=== PATIENT | female | born 1960 | race Caucasian/White ===

== ENCOUNTER 2016-06-27 10:52 | Inpatient (IN) | payer OTHER ==
[~2016-06-27] VITALS: Ht 162.6 cm; Wt 83.5 kg
[2016-06-27 11:55] LABS: HEMOGLOBIN 11.4 gm/dl (12.3-15.3); RED BLOOD COUNT 4.05 M/UL (4.00-5.10); WHITE BLOOD COUNT 8.1 K/UL (4.5-11.0)
[2016-06-27 12:18] LABS: BUN/CREATININE RATIO 10 (0-10)
[2016-06-28] MEDS ORDERED: ZOFRAN4 MG PO (00:13)
[2016-06-28] MEDS ORDERED: ZOCOR40 MG PO (00:14)
[2016-06-28] MEDS ORDERED: ZOLOFT100 MG PO (00:14)
[2016-06-28] MEDS ORDERED: GLUCOPHAGE 500500 MG PO (00:14)
[2016-06-28] MEDS ORDERED: FENOFIBRATE160 MG PO (00:15)
[2016-06-28] MEDS ORDERED: LANTUS100 UNIT/1 SQ (00:15)
[2016-06-28] MEDS ORDERED: NEURONTIN 400400 MG PO (00:15)
[2016-06-28] MEDS ORDERED: ALTACE10 MG PO (00:15)
[2016-06-28 04:37] LABS: RED BLOOD COUNT 3.97 M/UL (4.00-5.10)
[2016-06-28 05:04] LABS: BUN/CREATININE RATIO 23 (0-10)
[2016-06-30] MEDS ORDERED: LEVAQUIN750 MG PO (17:20)
[2016-06-30] MEDS ORDERED: MEDROL DOSEPAK 24 MG PO (17:21)
[2016-06-30] MEDS ORDERED: NICOTINE PATCH1 EAC1 TD (17:22)
[2016-06-30] MEDS ORDERED: FLONASE 0.05% N16 GM (17:24)
[2016-06-30] MEDS ORDERED: DIFLUCAN200 MG PO (17:24)
== END 2016-06-30 18:55 | disposition home or self-care (01) | DRG 189 ==
LOC: ER1 10:52 → ZEROF 21:24 → MED SURG 4 21:24
PROVIDERS: Emergency Medicine; ADMIT Hospitalist
DX: J96.21 Acute and chronic respiratory failure with hypoxia (principal); J44.1 Chronic obstructive pulmonary disease with (acute) exacerbation; J44.0 Chronic obstructive pulmonary disease with (acute) lower respiratory infection; J96.22 Acute and chronic respiratory failure with hypercapnia; J20.9 Acute bronchitis, unspecified; G47.33 Obstructive sleep apnea (adult) (pediatric); E66.9 Obesity, unspecified; F17.210 Nicotine dependence, cigarettes, uncomplicated; E11.65 Type 2 diabetes mellitus with hyperglycemia; Z79.899 Other long term (current) drug therapy; Z68.31 Body mass index [BMI] 31.0-31.9, adult; Z91.19 Patient's noncompliance with other medical treatment and regimen; Z79.84 Long term (current) use of oral hypoglycemic drugs; Z79.4 Long term (current) use of insulin; T38.0X5A Adverse effect of glucocorticoids and synthetic analogues, initial encounter
CPT/HCPCS: ECHO; 36415; 36600; 71010; 80048; 80053; 81001; 82550; 82553; 82803; 82962; 83605; 83690; 83874; 84484; 85025; 85027; 87086; 93005; 93306; 94640; 94660; 94664; 96361; 96374; 99285; J1956; J2930; J7050; J7509; Q0162; Q9963